=== PATIENT | female | born 1950 | race Two or more races ===

== ENCOUNTER 2020-02-09 07:56 | Outpatient (CLI) | payer OTHER | END 2020-02-09 08:03 | disposition home or self-care (01) | LOC: SONOGRAMA 07:56 | PROVIDERS: ATTEND Pathology Anatomic Pathology & Clinical Pathology | DX: E04.2 Nontoxic multinodular goiter (principal) ==

== ENCOUNTER 2021-02-22 07:00 | Day surgery (SDC) | payer OTHER ==
[~2021-02-22 07:00] MED LIST: SYNTHROID125 MCG PO; ZOLOFT100 MG PO
== END 2021-02-22 19:34 | disposition home or self-care (01) ==
LOC: CIR.AMB 07:00 → EDBD 10:00 → CIR.AMB 10:00
PROVIDERS: ATTEND Surgery
DX: D05.11 Intraductal carcinoma in situ of right breast (principal); Z20.822 Contact with and (suspected) exposure to COVID-19